=== PATIENT | female | born 1970 | race African-American/Black ===

== ENCOUNTER 2016-10-02 06:02 | Day surgery (SDC) | payer OTHER ==
[2016-10-02] MEDS ORDERED: CEFAZOLIN 2 GM/D5W 50 ML IVPB ONE (06:41)
[2016-10-02] MEDS ORDERED: IBUPROFEN 800 MG/8 ML IJ IVPB PRN (06:42)
[2016-10-02 06:45] VITALS: BMI 43.0
--- NOTE | 2016-10-02 06:45 | HP ---
History & Physical Update - History History: No Change - Physical Physical: No Change - Assessment Assessment: No Change - Plan Plan: No Change
[2016-10-02] MEDS ORDERED: PHENAZOPYRIDINE HCL 100 MG TABLET (FP) PO STA (06:51)
[2016-10-02] MEDS ORDERED: ceFAZolin SODIUM 1 GM VIAL ONE (07:00)
[2016-10-02] MEDS ORDERED: PHENAZOPYRIDINE HCL 100 MG TABLET (FP) ONE (07:00)
[2016-10-02] MEDS ORDERED: SUCCINYLCHOLINE CHLORIDE 200 MG/10 ML VIAL ONE (07:12)
[2016-10-02] MEDS ORDERED: PROPOFOL 20 ML ONE ×2 (07:12)
[2016-10-02] MEDS ORDERED: ROCURONIUM BROMIDE 50 MG/5 ML VIAL ONE (07:12)
[2016-10-02] MEDS ORDERED: MIDAZOLAM HCL 2 MG/2 ML SINGLE DOSE VIAL ONE (07:12)
[2016-10-02] MEDS ORDERED: ePHEDrine SULFATE 50 MG/1 ML AMPULE ONE (07:12)
[2016-10-02] MEDS ORDERED: DEXAMETHASONE SOD PHOSPHATE 4 MG/1 ML VIAL ONE (08:39)
[2016-10-02] MEDS ORDERED: BUPIVACAINE HCL/PF 0.5% (5MG/ML) 10 ML VIAL ONE (09:08)
[2016-10-02] MEDS ORDERED: NEOSTIGMINE METHYLSULFATE 0.5 MG/ML - 10 ML MDV ONE (09:31)
[2016-10-02] MEDS ORDERED: GLYCOPYRROLATE 0.2 MG/1 ML VIAL ONE (09:34)
[2016-10-02] MEDS ORDERED: LIDOCAINE HCL/PF 2% SDV 5ML VIAL ONE (09:46)
[2016-10-02] MEDS ORDERED: KETOROLAC TROMETHAMINE 30 MG/1 ML VIAL ONE (09:47)
[2016-10-02] MEDS ORDERED: ONDANSETRON 4 MG/2 ML VIAL IVPUSH PRN (10:10)
[2016-10-02] MEDS ORDERED: PROMETHAZINE HCL 25 MG/1 ML VIAL IVPUSH PRN (10:10)
[2016-10-02] MEDS ORDERED: LACTATED RINGERS SOLUTION 1,000 ML IV SCH (10:15)
[2016-10-02] MEDS ORDERED: HYDROmorphone *PCA* 10MG/50ML DISP.SYRIN PCA SCH ×2 (10:15→11:36)
--- NOTE | 2016-10-02 14:00 | OP ---
Operative Note - Note: Operative Date: 10/02/16 Pre-Operative Diagnosis: Leiomyomatous uterus. Abdominal pain Operation: Robotic laparoscopic Hysterectomy. Bilateral Salpingectomy Findings: leiomyomatous uterus 5 cm serosal myoma Post-Operative Diagnosis: Same as Pre-op Surgeon: Elizabeth Shah Excellence Manager: Rosita Boyd Anesthesia: General Estimated Blood Loss (mls): 50 Operative Report Dictated: Yes
[2016-10-02] MEDS ORDERED: BISACODYL 10 MG SUPP.RECT RC PRN (14:07)
[2016-10-02] MEDS: CEFAZOLIN 2 GM/D5W 50 ML IVPB SCH ×2 (15:00→23:03)
[2016-10-02] MEDS ORDERED: DEXTROSE 5%-LACTATED RINGERS 1,000 ML IV SCH (16:30)
[2016-10-02 19:10] LABS: ANION GAP 11 (8-16); CALCIUM 8.5 mg/dL (8.5-10.1); CO2 25 mmol/L (21-32); CREATININE 0.7 mg/dL (0.55-1.02); GLUCOSE,RANDOM 164 mg/dL (74-106)
[2016-10-02 21:06] LABS: BASOPHIL 0.2 % (0-2.0); EOSINOPHIL 0.2 % (0-4.5); MCH 26.3 pg (25.7-33.7); MCHC 31.9 g/dl (32.0-36.0); MEAN CELL VOLUME 82.3 fl (80-96); MEAN PLT VOLUME 8.9 fl (7.5-11.1); NEUTROPHILS 92.2 % (42.8-82.8); PLATELET COUNT 289 K/MM3 (134-434); RDW 14.4 % (11.6-15.6); WHITE BLOOD COUNT 10.9 K/mm3 (4.0-10.0)
[2016-10-03] MEDS ORDERED: PCA PUMP KEY 1 EACH EACH ONE ×3 (05:58→11:22)
--- NOTE | 2016-10-03 07:37 | OP ---
DATE OF OPERATION: 10/02/2016 PREOPERATIVE DIAGNOSIS: Leiomyomatous uterus, abdominal pain. OPERATION: Robotic laparoscopic hysterectomy and bilateral salpingectomy. POSTOPERATIVE DIAGNOSIS: Leiomyomatous uterus, abdominal pain. SURGEON: Sukhi Shah MD WHISTLE PUNK: Rosita Boyd MD ANESTHESIA: General. FINDINGS: Leiomyomatous uterus with a 5-cm serosal myoma noted on the left side. PROCEDURE: Patient was taken to the operating room, placed in dorsal lithotomy position, prepped and draped in the usual sterile fashion. A time-out was performed in accordance with hospital regulations. A speculum was placed in the vagina. The anterior lip of the cervix was grasped with a single-tooth tenaculum. The cervix was then dilated to accommodate the VCare device. VCare device was then inserted and covering the cervix, and the Dick catheter was then inserted. Attention was then drawn to the umbilicus, where 8-mm umbilical incision was made. Veress needle was inserted into the cavity. Approximately 3-4 L of CO2 was insufflated into the cavity. Veress needle was then removed, and an 8-mm trocar was then inserted. Laparoscope and camera was attached. Visualization revealed leiomyomatous uterus with 5-cm myoma noted on the left side. A 5-mm UroSeal cannula was inserted in the upper abdomen, and on the left side, another 8-mm trocar was inserted about 10 cm away from the umbilicus and parallel to it. Two other trocars were inserted on the right parallel to each other about 8 cm apart. Under direct visualization, after incisions had been made with the scalpel, trocars were inserted under direct visualization. The da Arti robot was then side-docked to the patients bedside. Cannulas were then attached to da Arti robot with Trendelenburg in place. Instruments were then inserted under direct visualization and tenaculum was inserted on the right and EndoShears on the right and vessel sealer on the left. After all placements had been confirmed, attention was then drawn to the console with control of the robot was then done. Tenaculum was then used to elevate the uterus to the right side where the round ligament was identified and clamped and cut using vessel sealer. Utero-ovarian ligament was identified and clamped and cut. The uterine artery was identified and clamped and cut, and the cardinal ligaments were identified and clamped and cut. Vesico-uterine reflection was then entered, and bladder was bluntly dissected out of the operative field. Same procedure was repeated on the right side. The round ligaments were identified and clamped and cut. Utero-ovarian ligament was identified and clamped and cut. The uterine artery was then clamped and cut, and bladder was bluntly dissected out of the operative field. Cardinal ligaments were identified and clamped and cut. The vagina was then entered anteriorly, and circumferential incision around the vagina was cut away from the cervix using the EndoShears. After cervix and uterus was removed, the attention was then drawn to the vaginal cuff, where the uterus and tubes were bilaterally grasped and removed using vessel sealer, and the uterus, cervix, and tubes were then removed through the vagina. The V-Loc suture was then passed through the vagina, and continuous stitching was then done with the V-Loc suture and oversewn in the midline. The seal was confirmed. Ureters were identified good peristalsis. Dick was noted to have orange urine. Pyridium was given prior to the procedure. The needle was then removed from the abdomen, CO2 was removed from the abdomen, and all trocars were removed and incisions closed using 4-0 Biosyn suture in a subcuticular fashion. Wound was washed and dressed. Patient tolerated the procedure well. Estimated blood loss was 50 mL. SUKHI SHAH M.D. [id number] MTDD
[2016-10-03 08:57] VITALS: BP 134/76; PULSE 57; TEMP 97.6
--- NOTE | 2016-10-03 09:10 | PN ---
Progress Note, Physician Chief Complaint: Pt. pain controlled, not using CLOTH CHECKER much. No GA complaints. - Current Medication List Current Medications: Active Medications Bisacodyl (Dulcolax Suppository -) 10 mg RC PRN PRN PRN Reason: CONSTIPATION Enoxaparin Sodium (Lovenox -) 40 mg SQ DAILY KIANA Hydromorphone HCl (Dilaudid [employer] -) 10 mg CLOTH CHECKER CLOTH CHECKER KIANA PRN Reason: Protocol Stop: 10/05/16 10:11 Last Admin: 10/02/16 19:18 Dose: Not Given Dextrose/Lactated Ringer's (D5-Lr -) 1,000 mls @ 125 mls/hr IV ASDIR KIANA Last Admin: 10/03/16 02:14 Dose: 125 mls/hr Ibuprofen (Caldolor Injection -) 800 mg IVPB Q6H PRN PRN Reason: FEVER - Objective Vital Signs: Vital Signs Temperature 97.6 F 10/03/16 07:30 Pulse Rate 57 L 10/03/16 07:30 Respiratory Rate 20 10/03/16 07:30 Blood Pressure 134/76 10/03/16 07:30 O2 Sat by Pulse Oximetry (%) 100 10/03/16 07:30 Constitutional: Yes: Well Nourished, No Distress, Calm Neurological: Yes: WNL, Alert, Oriented Labs: CBC, BMP 10/02/16 20:30 10/02/16 18:00 Assessment/Plan POD#1 s/p laparoscopic hysterectomy and salpingectomy under GA. Doing well. D/C from anesthesia care. D/C CLOTH CHECKER
[2016-10-03] MEDS ORDERED: ENOXAPARIN NA (PORCINE) 40 MG/0.4 ML DISP.SYRIN SQ SCH (10:00)
--- NOTE | 2016-10-04 12:41 | PATH ---
Surgical Pathology Report Patient Name: ÁNGEL KATZ [facility]. Rec. #: [id number] /Age/Gender: 1970 (Age: 46) / F Account: [id number] Location: AMBULATORY SURG Taken: 10/02/2016 Received: 10/02/2016 Reported: 10/04/2016 Physicians: Elizabeth Shah M.D. Specimen(s) Received A: UTERUS AND CERVIX B: RIGHT FALLOPIAN TUBE C: LEFT FALLOPIAN TUBE Clinical History Chronic pelvic pain Final Diagnosis A. UTERUS AND CERVIX, LAPAROSCOPIC HYSTERECTOMY, BILATERAL SALPINGECTOMY: CERVIX: CHRONIC CERVICITIS. ENDOMETRIUM: PROLIFERATIVE. MYOMETRIUM: ADENOMYOSIS, LEIOMYOMA (5.5 CM). UTERINE SEROSA: WITHOUT SIGNIFICANT PATHOLOGIC CHANGES. B. FALLOPIAN TUBE, RIGHT SALPINGECTOMY: BENIGN FALLOPIAN TUBE WITH COMPLETE CROSS SECTION. C. FALLOPIAN TUBE, LEFT, SALPINGECTOMY: BENIGN FALLOPIAN TUBE WITH COMPLETE CROSS SECTION. Electronically Signed Donald Morfin M.D. Gross Description A. Received in formalin, labeled "uterus and cervix" is a 190 g, 9.0 x 8.0 x 5.0 cm uterus without attached adnexa. The exocervix is peterson and glistening. The endocervical canal is lined by peterson trabeculated mucosa. The endometrium is peterson-red and up to 0.1 cm in thickness. The myometrium is up to 1.5 cm in thickness. There is a 5.5 cm in the largest dimension single peterson-white nodule with whorled cut surface without areas of hemorrhage or necrosis. The uterine serosa is peterson-pink. Process Excellence Manager sections submitted as follows: Cassettes #1: anterior cervix, cassette #2: posterior cervix, cassette #3: sections of anterior endomyometrium and serosa, cassette #4 sections of posterior endomyometrium and serosa, cassettes #5 and 6: sections of fibroid nodule. B. Received in formalin, labeled "right fallopian tube" is a 3.5 x 0.6 cm fimbriated portion of fallopian tube. The outer surface is peterson-pink. The section reveals a pinpoint lumen. Process Excellence Manager sections submitted in one cassette. C. Received in formalin, labeled "left fallopian tube" is a 3.5 x 0.6 cm the portion of fallopian tube. The outer surface is peterson-pink. The sections reveal a pinpoint lumen. Process Excellence Manager sections submitted one cassette. AF/10/02/2016 final/10/02/2016
== END 2016-10-03 14:10 | disposition home or self-care (01) ==
LOC: JASUSAT 06:02 → J3W 13:06 → JASUSAT 10-03 14:10
PROVIDERS: ATTEND Obstetrics & Gynecology
PROC: 0UT7FZZ Resection of Bilateral Fallopian Tubes, Via Natural or Artificial Opening With Percutaneous Endoscopic Assistance (ICD-10-PCS; 2016-10-02)
PROC: 8E0W4CZ Robotic Assisted Procedure of Trunk Region, Percutaneous Endoscopic Approach (ICD-10-PCS; 2016-10-02)
PROC: 0UT9FZZ Resection of Uterus, Via Natural or Artificial Opening With Percutaneous Endoscopic Assistance (ICD-10-PCS; principal; 2016-10-02 08:00)
PROC: 0UTC7ZZ Resection of Cervix, Via Natural or Artificial Opening (ICD-10-PCS; 2016-10-02 08:00)
DX: D25.9 Leiomyoma of uterus, unspecified (principal); D25.2 Subserosal leiomyoma of uterus
CPT/HCPCS: 58552; S2900; 36415; 80048; 84703; 85025; 88302-TC; 88307-TC; 94010; 94760